=== PATIENT | male | born 1995 | race Caucasian/White ===

== ENCOUNTER 2022-10-05 15:00 | Emergency (ER) | payer OTHER ==
[2022-10-05] MEDS ORDERED: PROPARACAINE 0.5% OPHTH DROPS 15 ML BTL LEFT EYE STA (15:30)
[2022-10-05] MEDS ORDERED: FLUORESCEIN STRIPS 1 MG STRIP LEFT EYE ONE (15:35)
--- NOTE | 2022-10-05 16:05 | ED ---
General Adult HPI - General Chief complaint: Eye Problems Stated complaint: Left Eye pain, Time Seen by Provider: 10/05/22 15:26 Source: patient Mode of arrival: ambulatory Limitations: no limitations - History of Present Illness Initial comments: Patient is a 27-year-old male presenting with chief complaint of left eye pain. Patient states that he is currently in rehab, last night he asked for solution to place contacts and 2. This morning when he put his contacts in his left eye began instantly burning and watering. Patient states he removed his contact but the sensation has remained all day. No injury or trauma to the eye. Does admit to foreign body sensation. There is swelling around the eye. Sclera is red. Patient states that his left nostril is also been draining today. He is having blurry vision. No purulent discharge, fever, chills, headache, neck pain or stiffness. - Related Data Allergies Allergy/AdvReac Type Severity Reaction Status Date / Time Penicillins Allergy Rash/Hives Verified 10/05/22 15:24 Review of Systems ROS Statement: Those systems with pertinent positive or pertinent negative responses have been documented in the HPI. ROS Other: All systems not noted in ROS Statement are negative. Past Medical History Past Medical History: No Reported History History of Any Multi-Drug Resistant Organisms: None Reported Past Surgical History: No Surgical Hx Reported Past Psychological History: No Psychological Hx Reported Smoking Status: Current every day smoker Past Alcohol Use History: Abuse Past Drug Use History: Cocaine, Prescription Drug Abuse General Exam Limitations: no limitations General appearance: alert, in no apparent distress Head exam: Present: atraumatic, normocephalic, normal inspection Expanded Eyelids: Swelling: Left Pupils: Regular, Round: Bilateral, Reactive: Bilateral Sclera/Conjunctival: Injection: Left Neck exam: Present: normal inspection Neurological exam: Present: alert, oriented X3, CN II-XII intact Psychiatric exam: Present: normal affect, normal mood Skin exam: Present: warm, dry, intact, normal color. Absent: rash Course Vital Signs 10/05/22 10/05/22 15:21 20:25 Temperature 98 F 98.6 F Pulse Rate 72 70 Respiratory 20 18 Rate Blood Pressure 124/68 125/81 O2 Sat by Pulse 99 100 Oximetry - Reevaluation(s) Reevaluation #1: Ophthalmology has been paged 3 times by secretary bookkeeper, still awaiting return call 10/05/22 19:32 Medical Decision Making - Medical Decision Making Patient is a 27-year-old male presenting with chief complaint of left eye pain. When patient put his contact lenses and this morning he admits to a burning sensation. Patient admits to watering, blurry vision, redness of the eye throughout the day. PH is 7. Eye was flushed with 500 mL normal saline with using Butch lens. There is scleral injection. Eyes watering profusely. Ocular pressures measure 14 on the left side in 19 on the right side. Unable to obtain visual acuity, as patient is wearing one contact lens in the right eye and no contact lens in the left eye. On fluorescein staining there is abnormal uptake measuring about 2 x 3 mm. Concerning for corneal ulcer. I spoke with head of training and development gas station supervisor Dr. Warner, he advised starting moxifloxacin eyedrops, apply one drop every 2 hours while awake. He states that the patient can follow-up in the office tomorrow morning at 8 AM.. Conveyed these recommendations to the patient. I stressed the importance of follow-up, emphasized that without follow-up this may result in permanent injury or blindness. Patient is agreeable with this plan. Patient was sent home with antibiotic eyedrops. I discussed this case with my attending Dr. Borden Disposition Clinical Impression: Corneal ulcer Disposition: HOME SELF-CARE Condition: Fair Instructions (If sedation given, give patient instructions): Corneal Ulcer (ED) Additional Instructions: Follow up with head of training and development Dr. Warner tomorrow morning at 8 AM in the office. The office is located at [address] [place] [address] in [facility]. It is of utmost importance that you follow up with the head of training and development tomorrow, not following up may result in vision loss or blindness. Take antibiotic as prescribed. Apply one drop every 2 hours while awake. Is patient prescribed a controlled substance at d/c from ED?: No Referrals: None,Stated [Primary Care Provider] - 1-2 days Barbara Warner MD [STAFF PHYSICIAN] - 10/06/22 8:00 am Time of Disposition: 19:56
[2022-10-05] MEDS ORDERED: MOXIFLOXACIN HCL 0.5% DROPS 3 ML BTL LEFT EYE SCH (20:00)
[2022-10-05 20:25] VITALS: BP 125/81; PULSE 70; RESP 18; TEMP 98.6
== END 2022-10-05 20:25 | disposition home or self-care (01) ==
LOC: EC 15:00
DX: H16.002 Unspecified corneal ulcer, left eye (principal); F17.200 Nicotine dependence, unspecified, uncomplicated; Z88.0 Allergy status to penicillin
CPT/HCPCS: 99283